=== PATIENT | female | born 1995 | race Caucasian/White ===

== ENCOUNTER 2020-09-20 18:36 | Inpatient (IN) | payer MEDICAID ==
[~2020-09-20] VITALS: Ht 157.5 cm; Wt 54.8 kg
[2020-09-20] MEDS ORDERED: ONDANSETRON ODT 4 MG PO PRN (20:30)
[2020-09-20] MEDS ORDERED: DOCUSATE 100 MG CAPSULE PO PRN (20:30)
[2020-09-20] MEDS ORDERED: POLYETHYLENE GLYCOL 17 GM PACKET PO PRN (20:30)
[2020-09-20] MEDS ORDERED: BISACODYL 10 MG SUPP PR PRN (20:30)
[2020-09-20 21:30] VITALS: BP 132/84
[2020-09-20] MEDS ORDERED: PLEASE ENTER HEIGHT AND WEIGHT MC SCH (22:00)
[2020-09-20 23:03] LABS: MICROSCOPIC INDICATED
[2020-09-21] MEDS ORDERED: PROP20TA PO (02:09)
[2020-09-21] MEDS ORDERED: SERT25TA3 PO (02:09)
[2020-09-21] MEDS ORDERED: HYDR-826 PO (02:09)
[2020-09-21 06:34] LABS: BASOPHILS % (AUTO) 1 % (0-1); EOSINOPHILS % (AUTO) 1 % (1-7); LYMPHOCYTES % (AUTO) 23 % (22-44); MEAN CORPUSCULAR HEMOGLOBIN 29.7 pg (27.0-34.8); MEAN CORPUSCULAR HGB CONC 33.8 g/dL (32.4-35.8); MEAN PLATELET VOLUME 6.8 fL (7.4-10.4); MONOCYTES % (AUTO) 9 % (2-9); NEUTROPHILS % (AUTO) 67 % (42-75); PLATELET COUNT 288 x10^3/uL (130-400); RED BLOOD COUNT 4.69 x10^6/uL (3.82-5.3); RED CELL DISTRIBUTION WIDTH 13.8 % (9.6-15.2)
[2020-09-21 06:42] LABS: MD NO
[2020-09-21 06:49] LABS: CHLORIDE 110 mmol/L (98-107)
[2020-09-21 07:12] VITALS: BP 117/79
[2020-09-21 07:17] LABS: ALANINE AMINOTRANSFERASE 21 U/L (12-78); ALBUMIN 3.3 g/dL (3.4-5.0); ALKALINE PHOSPHATASE 61 U/L (45-117); ANION GAP 8 mmol/L (5-15); BILIRUBIN,TOTAL 0.6 mg/dL (0.2-1.0); CHOL/HDL RATIO 3.3; CHOLESTEROL, TOTAL 186 mg/dL (140-239); CREATININE 0.76 mg/dL (0.55-1.02); FREE T4 (FREE THYROXINE) 1.45 ng/dL (0.76-1.46); HDL CHOL % 30 % (28-40); HDL CHOLESTEROL (DIRECT) 56 mg/dL (40-60); LDL CHOLESTEROL,CALCULATED 114 mg/dL (54-169); TOTAL PROTEIN 7.8 g/dL (6.4-8.2); TRIGLYCERIDES 82 mg/dL (50-200); VLDL CHOLESTEROL 16 mg/dL (0-25)
[2020-09-21] MEDS: ACETAMINOPHEN 325 MG TABLET PO PRN (08:40)
[2020-09-21 15:20] VITALS: BP 130/91
[2020-09-21 19:18] VITALS: BP 111/76
[2020-09-21] MEDS: CEFDINIR 300 MG CAPSULE PO SCH (20:14)
[2020-09-22 07:06] VITALS: BP 115/76
[2020-09-22] MEDS: ACETAMINOPHEN 325 MG TABLET PO PRN (08:21)
[2020-09-22] MEDS: CEFDINIR 300 MG CAPSULE PO SCH ×2 (08:21→21:41)
[2020-09-22] MEDS: ESCITALOPRAM 10MG TABLET PO SCH (16:00)
[2020-09-22 19:30] VITALS: BP_SYST 116; BP_SYST 117; BP_DIAS 77; BP_DIAS 82
[2020-09-23 07:15] VITALS: BP 113/76
[2020-09-23] MEDS: ESCITALOPRAM 10MG TABLET PO SCH (09:00)
[2020-09-23] MEDS: CEFDINIR 300 MG CAPSULE PO SCH ×2 (09:13→20:40)
[2020-09-23] MEDS: VENLAFAXINE XR 37.5MG CAP.ER.24H PO SCH (14:01)
[2020-09-23] MEDS ORDERED: PROPRANOLOL 10 MG TABLET PO SCH (18:00)
[2020-09-23 20:01] VITALS: BP 122/85
[2020-09-24 07:24] VITALS: BP 115/74
[2020-09-24] MEDS: CEFDINIR 300 MG CAPSULE PO SCH (08:35)
[2020-09-24] MEDS: VENLAFAXINE XR 37.5MG CAP.ER.24H PO SCH (08:36)
[2020-09-24] MEDS: PROPRANOLOL 10 MG TABLET PO SCH ×2 (08:36→21:33)
[2020-09-24 19:09] VITALS: BP 115/78
[2020-09-24] MEDS: MELATONIN 5 MG TABLET PO SCH (21:33)
[2020-09-25 07:20] VITALS: BP 109/70
[2020-09-25] MEDS: VENLAFAXINE XR 37.5MG CAP.ER.24H PO SCH (08:10)
[2020-09-25] MEDS: PROPRANOLOL 10 MG TABLET PO SCH ×2 (08:12→21:34)
[2020-09-25 21:05] VITALS: BP 112/71
[2020-09-25] MEDS: MELATONIN 5 MG TABLET PO SCH (21:34)
[2020-09-26 07:28] VITALS: BP 101/63
[2020-09-26] MEDS: PROPRANOLOL 10 MG TABLET PO SCH ×2 (08:19→20:19)
[2020-09-26] MEDS: VENLAFAXINE 75 MG CAP ER PO SCH (08:19)
[2020-09-26 19:40] VITALS: BP 112/76
[2020-09-26] MEDS: MELATONIN 5 MG TABLET PO SCH (20:19)
[2020-09-27 06:49] VITALS: BP 100/66
[2020-09-27] MEDS: PROPRANOLOL 10 MG TABLET PO SCH ×2 (08:15→21:52)
[2020-09-27] MEDS: VENLAFAXINE 75 MG CAP ER PO SCH (08:15)
[2020-09-27 20:14] VITALS: BP 109/73
[2020-09-27] MEDS: MELATONIN 5 MG TABLET PO SCH (21:52)
[2020-09-28 07:03] VITALS: BP 99/66
[2020-09-28] MEDS: PROPRANOLOL 10 MG TABLET PO SCH (08:35)
[2020-09-28] MEDS: VENLAFAXINE 75 MG CAP ER PO SCH (08:35)
[2020-09-28] MEDS ORDERED: NYST1000 PO (10:39)
[2020-09-28] MEDS ORDERED: ACAMPROSATE 333 MG TABLET.DR PO SCH (11:00)
[2020-09-28] MEDS ORDERED: MELA5TAB14 PO (11:32)
[2020-09-28] MEDS ORDERED: PROP10TA16 PO (11:32)
[2020-09-28] MEDS ORDERED: ACAM333T7 PO (11:32)
[2020-09-28] MEDS ORDERED: VENL75CA6 PO (11:32)
== END 2020-09-28 12:27 | disposition home or self-care (01) | DRG 751 ==
LOC: 3E 21:46
PROVIDERS: ADMIT Psychiatry & Neurology Psychosomatic Medicine; ATTEND Psychiatry & Neurology Psychosomatic Medicine
DX: F33.2 Major depressive disorder, recurrent severe without psychotic features (principal); F41.1 Generalized anxiety disorder; G47.00 Insomnia, unspecified; F10.20 Alcohol dependence, uncomplicated; T43.592A Poisoning by other antipsychotics and neuroleptics, intentional self-harm, initial encounter; Z91.5 Personal history of self-harm; Z79.899 Other long term (current) drug therapy
CPT/HCPCS: 36415; 80053; 80061; 81001; 82607; 84439; 84443; 85025; 87086; 87426; 87491; 87591; 93005